=== PATIENT | female | born 1955 | race Caucasian/White ===

== ENCOUNTER 2021-05-30 06:41 | Inpatient (IN) | payer BC ==
[2021-05-30] MEDS ORDERED: Dexamethasone 10 MG/ML VIAL ONE (07:39)
[2021-05-30 07:55] LABS: #Monocytes 0.5 10x3/uL (0.0-1.1); %Basophils 0.7 % (0.0-2.0); %Lymphocytes 21.5 % (18.0-47.0); %Monocytes 11.2 % (0.0-10.0); %Neutrophils 66.2 % (40.0-75.0); Hemoglobin 15.4 g/dL (12.0-15.5); Mean Corpuscular HGB CONC 34.4 g/dL (32.0-36.0); Mean Corpuscular Hemoglobin 31.9 pg (27.0-33.0); Mean Corpuscular Volume 92.8 fl (81.6-98.3); Mean Platelet Volume 10.6 fl (7.4-10.4); Platelet Count 103 10x3/uL (150-450); Red Blood Cell (RBC) Count 4.83 10x6/uL (3.90-5.03); White Blood Cell (WBC) Count 4.5 10x3/uL (3.5-10.5)
[2021-05-30 07:58] LABS: Anion Gap 14 mmol/L (10-20); BUN (Urea Nitrogen) 8 mg/dL (9.8-20.1); Calc. Creatinine Clearance 0 mL/min (70-130); Calcium 9.2 mg/dL (7.8-10.44); Carbon Dioxide 23 mmol/L (23-31); Chloride 104 mmol/L (98-107); Glucose 98 mg/dL (80-115); Potassium 3.9 mmol/L (3.5-5.1); Sodium 137 mmol/L (136-145)
[2021-05-30 08:32] LABS: Platelet Morphology Comment Appears Decreased; RBC Morphology Normal
[2021-05-30] MEDS ORDERED: Ondansetron PF 4 MG/2 ML Vial IVP PRN (09:33)
[2021-05-30] MEDS ORDERED: Acetaminophen 325 MG TAB PO PRN (09:33)
[2021-05-30] MEDS ORDERED: Ventolin HFA Inhaler 60 PUFF INHALER INH PRN (09:48)
[2021-05-30] MEDS ORDERED: Enoxaparin Sodium 40 MG/0.4 ML SYRINGE SC SCH (12:00)
[2021-05-30 12:40] LABS: ALT (SGPT) 30 U/L (8-55); AST (SGOT) 36 U/L (5-34); Albumin 4.1 g/dL (3.4-4.8); Alkaline Phosphatase 104 U/L (40-110); Bilirubin, Direct 0.2 mg/dL (0.1-0.3); Bilirubin, Total 0.3 mg/dL (0.2-1.2); Protein, Total 7.6 g/dL (5.8-8.1)
[2021-05-30] MEDS ORDERED: REMDESIVIR 200 MG in Sodium Chloride 0.9% 250 ML 210 ML IV SCH (13:30)
[2021-05-30] MEDS ORDERED: Enoxaparin Sodium 40 MG/0.4 ML SYRINGE ONE (14:32)
[2021-05-30 20:25] VITALS: BMI 25.1
[2021-05-30] MEDS: Nicotine 21 MG PATCH TD SCH (22:51)
[2021-05-31 05:29] LABS: Anion Gap 16 mmol/L (10-20); BUN (Urea Nitrogen) 10 mg/dL (9.8-20.1); Calc. Creatinine Clearance 117 mL/min (70-130); Calcium 9.1 mg/dL (7.8-10.44); Carbon Dioxide 19 mmol/L (23-31); Chloride 106 mmol/L (98-107); Glucose 94 mg/dL (80-115); Potassium 3.9 mmol/L (3.5-5.1); Sodium 137 mmol/L (136-145)
[2021-05-31 05:32] LABS: ALT (SGPT) 25 U/L (8-55); AST (SGOT) 30 U/L (5-34); Albumin 3.5 g/dL (3.4-4.8); Alkaline Phosphatase 86 U/L (40-110); Bilirubin, Direct 0.2 mg/dL (0.1-0.3); Bilirubin, Total 0.3 mg/dL (0.2-1.2); Protein, Total 6.4 g/dL (5.8-8.1)
[2021-05-31 05:39] LABS: #Monocytes 0.6 10x3/uL (0.0-1.1); #Neutrophils 4.7 10x3/uL (1.5-8.4); %Basophils 0.3 % (0.0-2.0); %Lymphocytes 24.6 % (18.0-47.0); %Monocytes 8.4 % (0.0-10.0); %Neutrophils 66.4 % (40.0-75.0); Hemoglobin 14.5 g/dL (12.0-15.5); Mean Corpuscular HGB CONC 33.4 g/dL (32.0-36.0); Mean Corpuscular Volume 92.9 fl (81.6-98.3); Mean Platelet Volume 10.8 fl (7.4-10.4); Platelet Count 104 10x3/uL (150-450); RBC Distribution Width 13.8 % (11.5-14.5); Red Blood Cell (RBC) Count 4.67 10x6/uL (3.90-5.03)
[2021-05-31] MEDS: guaiFENesin ER 600 MG TAB PO SCH ×2 (08:52→19:50)
[2021-05-31] MEDS: Zinc Sulfate 220 MG CAP PO SCH (08:52)
[2021-05-31] MEDS: Enoxaparin Sodium 40 MG/0.4 ML SYRINGE SC SCH (08:52)
[2021-05-31] MEDS: Dexamethasone 4 mg/ml Vial SLOW IVP SCH (08:52)
[2021-05-31] MEDS: Ascorbic Acid 500 mg Chewable Tablet PO SCH (08:52)
[2021-05-31] MEDS ORDERED: Dexamethasone 6 MG in Sodium Chloride 0.9% 50 ML IVPB SCH (09:00)
[2021-05-31] MEDS: REMDESIVIR 100 MG in Sodium Chloride 0.9% 250 ML 230 ML IV SCH (12:30)
[2021-05-31] MEDS: Nicotine 21 MG PATCH TD SCH (15:05)
[2021-05-31] MEDS ORDERED: diphenhydrAMINE 50 MG CAP PO SCH (21:00)
[2021-06-01 04:34] LABS: ALT (SGPT) 24 U/L (8-55); AST (SGOT) 28 U/L (5-34); Albumin 3.5 g/dL (3.4-4.8); Alkaline Phosphatase 83 U/L (40-110); Anion Gap 16 mmol/L (10-20); BUN (Urea Nitrogen) 14 mg/dL (9.8-20.1); Bilirubin, Direct 0.1 mg/dL (0.1-0.3); Bilirubin, Total 0.3 mg/dL (0.2-1.2); Calc. Creatinine Clearance 108 mL/min (70-130); Calcium 9.1 mg/dL (7.8-10.44); Carbon Dioxide 21 mmol/L (23-31); Chloride 107 mmol/L (98-107); Globulin 2.8 g/dL (2.4-3.5); Glucose 105 mg/dL (80-115); Protein, Total 6.3 g/dL (5.8-8.1); Sodium 140 mmol/L (136-145)
[2021-06-01 04:43] LABS: Hemoglobin 15.1 g/dL (12.0-15.5); Mean Corpuscular HGB CONC 33.7 g/dL (32.0-36.0); Mean Corpuscular Hemoglobin 31.4 pg (27.0-33.0); Mean Corpuscular Volume 93.1 fl (81.6-98.3); Mean Platelet Volume 10.5 fl (7.4-10.4); Platelet Count 114 10x3/uL (150-450); RBC Distribution Width 13.7 % (11.5-14.5); Red Blood Cell (RBC) Count 4.81 10x6/uL (3.90-5.03); White Blood Cell (WBC) Count 4.7 10x3/uL (3.5-10.5)
[2021-06-01 08:06] LABS: Lymphocytes 35 % (21-51); Reactive Lymphocytes 5 % (0-10)
[2021-06-01 08:07] LABS: Band 12 % (5-11); Neutrophil 35 % (42-75)
[2021-06-01 08:09] LABS: Large Platelets SLIGHT; Monocytes 12 % (0-10); Platelet Morphology Comment Appears Adequate
[2021-06-01 08:10] LABS: MDiff Complete? YES; Manual Diff?? YES; RBC Morphology Normal
[2021-06-01] MEDS: Enoxaparin Sodium 40 MG/0.4 ML SYRINGE SC SCH (09:17)
[2021-06-01] MEDS: Dexamethasone 4 mg/ml Vial SLOW IVP SCH (09:17)
[2021-06-01] MEDS: guaiFENesin ER 600 MG TAB PO SCH ×2 (09:17→21:27)
[2021-06-01] MEDS: Ascorbic Acid 500 mg Chewable Tablet PO SCH (09:17)
[2021-06-01] MEDS: Zinc Sulfate 220 MG CAP PO SCH (09:18)
[2021-06-01] MEDS: Nicotine 21 MG PATCH TD SCH (12:40)
[2021-06-01] MEDS: REMDESIVIR 100 MG in Sodium Chloride 0.9% 250 ML 230 ML IV SCH (14:10)
[2021-06-01] MEDS ORDERED: diphenhydrAMINE 50 MG CAP PO SCH (21:30)
[2021-06-02 05:54] LABS: #Monocytes 0.6 10x3/uL (0.0-1.1); #Neutrophils 2.7 10x3/uL (1.5-8.4); %Basophils 0.4 % (0.0-2.0); %Lymphocytes 38.9 % (18.0-47.0); %Monocytes 11.2 % (0.0-10.0); Hemoglobin 15.1 g/dL (12.0-15.5); Mean Corpuscular HGB CONC 34.2 g/dL (32.0-36.0); Mean Corpuscular Hemoglobin 31.5 pg (27.0-33.0); Mean Corpuscular Volume 91.9 fl (81.6-98.3); Mean Platelet Volume 10.7 fl (7.4-10.4); Platelet Count 127 10x3/uL (150-450); RBC Distribution Width 13.5 % (11.5-14.5); White Blood Cell (WBC) Count 5.5 10x3/uL (3.5-10.5)
[2021-06-02 06:02] LABS: ALT (SGPT) 26 U/L (8-55); AST (SGOT) 28 U/L (5-34); Albumin 3.5 g/dL (3.4-4.8); Alkaline Phosphatase 75 U/L (40-110); Anion Gap 13 mmol/L (10-20); BUN (Urea Nitrogen) 12 mg/dL (9.8-20.1); Bilirubin, Direct 0.2 mg/dL (0.1-0.3); Bilirubin, Total 0.3 mg/dL (0.2-1.2); Calc. Creatinine Clearance 123 mL/min (70-130); Calcium 9.2 mg/dL (7.8-10.44); Carbon Dioxide 22 mmol/L (23-31); Chloride 107 mmol/L (98-107); Glucose 104 mg/dL (80-115); Potassium 3.9 mmol/L (3.5-5.1); Protein, Total 6.5 g/dL (5.8-8.1); Sodium 138 mmol/L (136-145)
[2021-06-02 08:44] VITALS: BP 146/68; TEMP 97.4
[2021-06-02] MEDS: Dexamethasone 4 mg/ml Vial SLOW IVP SCH (09:27)
[2021-06-02] MEDS: guaiFENesin ER 600 MG TAB PO SCH (09:28)
[2021-06-02] MEDS: Enoxaparin Sodium 40 MG/0.4 ML SYRINGE SC SCH (09:28)
[2021-06-02] MEDS: Ascorbic Acid 500 mg Chewable Tablet PO SCH (09:28)
[2021-06-02] MEDS: Zinc Sulfate 220 MG CAP PO SCH (09:28)
[2021-06-02] MEDS: REMDESIVIR 100 MG in Sodium Chloride 0.9% 250 ML 230 ML IV SCH (14:37)
[2021-06-02] MEDS: Nicotine 21 MG PATCH TD SCH (14:37)
== END 2021-06-02 17:00 | disposition home or self-care (01) | DRG 177 ==
LOC: CSHERS 06:41 → CSHERHOLD 10:04 → CSHTELE 15:46 → OBSVTOIN 05-31 14:47
PROVIDERS: ADMIT Internal Medicine; ATTEND Internal Medicine
PROC: XW033E5 Introduction of Remdesivir Anti-infective into Peripheral Vein, Percutaneous Approach, New Technology Group 5 (ICD-10-PCS; principal; 2021-05-31)
PROC: 8E0ZXY6 Isolation (ICD-10-PCS; 2021-05-31)
DX: U07.1 COVID-19 (principal); J12.82 Pneumonia due to coronavirus disease 2019; J96.01 Acute respiratory failure with hypoxia; F17.210 Nicotine dependence, cigarettes, uncomplicated; Z71.6 Tobacco abuse counseling; J44.9 Chronic obstructive pulmonary disease, unspecified; Z90.710 Acquired absence of both cervix and uterus
CPT/HCPCS: 36415; 71045; 80048; 80053; 80076; 83605; 83615; 84484; 85025; 85379; 86140; 94760; 96372; 96374; 96375; 96376; G0378; J1100; J1650; J7050

== ENCOUNTER 2022-04-03 06:51 | Observation (INO) | payer MEDICARE ==
[2022-04-03] MEDS ORDERED: Lidocaine 1% MPF 2 ML VIAL ONE (08:24)
[2022-04-03] MEDS ORDERED: Bupivacaine PF 0.5% 30 ML VIAL ONE (09:20)
[2022-04-03] MEDS ORDERED: EPINEPHrine 1 MG/ML AMP ONE (09:20)
[2022-04-03] MEDS ORDERED: CEFAZOLIN 2 GM VIAL ONE (09:56)
[2022-04-03] MEDS ORDERED: PROPOFOL 20 ML ONE (09:58)
[2022-04-03] MEDS ORDERED: Fentanyl 100 MCG/2 ML VIAL ONE ×4 (09:58→12:10)
[2022-04-03] MEDS ORDERED: Ketorolac Tromethamine 30 MG/ML VIAL ONE (10:27)
[2022-04-03] MEDS ORDERED: ePHEDrine Sulfate 50 MG/10 ML VIAL ONE (10:30)
[2022-04-03] MEDS ORDERED: PHENYLEPHRINE-NS 100 MCG/ML 10 ML SYRINGE ONE (10:32)
[2022-04-03] MEDS ORDERED: Acetaminophen 325 MG TAB PO PRN ×2 (11:54→15:04)
[2022-04-03] MEDS ORDERED: HYDROcodone/Acetaminophen 5/325 mg Tablet PO PRN (11:54)
[2022-04-03] MEDS ORDERED: HYDROmorphone 0.5 MG/0.5 ML SYRINGE ONE ×3 (12:30→13:01)
[2022-04-03] MEDS ORDERED: Acetaminophen 325 MG TAB ONE (13:33)
[2022-04-03] MEDS ORDERED: Ondansetron PF 4 MG/2 ML Vial IVP PRN (15:04)
[2022-04-03] MEDS ORDERED: Morphine 2 MG/ML VIAL SLOW IVP PRN (15:04)
[2022-04-03] MEDS ORDERED: Morphine 4 MG/ML VIAL SLOW IVP PRN (15:04)
[2022-04-03] MEDS: Sodium Chloride 0.9% 1,000 ML IV SCH (17:16)
[2022-04-03 17:34] VITALS: BMI 24.7
[2022-04-03] MEDS: Ketorolac Tromethamine 30 MG/ML VIAL IVP SCH ×2 (20:04→23:50)
[2022-04-03] MEDS: Famotidine 20 MG TAB PO SCH (20:06)
[2022-04-03] MEDS ORDERED: Enoxaparin Sodium 40 MG/0.4 ML SYRINGE SC SCH (21:00)
[2022-04-04] MEDS ORDERED: traMADol HCl 50 MG TAB PO SCH (01:15)
[2022-04-04] MEDS: Sodium Chloride 0.9% 1,000 ML IV SCH ×2 (04:35→10:17)
[2022-04-04] MEDS: Ketorolac Tromethamine 30 MG/ML VIAL IVP SCH (05:02)
[2022-04-04] MEDS ORDERED: traMADol HCl 50 MG TAB PO PRN (10:09)
[2022-04-04] MEDS: Famotidine 20 MG TAB PO SCH (10:15)
[2022-04-04 12:07] VITALS: BP 122/60; TEMP 97.1
== END 2022-04-04 11:30 | disposition home or self-care (01) ==
LOC: CSHSDC 06:51 → CSHTELE 15:35
PROVIDERS: ADMIT Surgery; ATTEND Surgery
PROC: 0WUF4JZ Supplement Abdominal Wall with Synthetic Substitute, Percutaneous Endoscopic Approach (ICD-10-PCS; principal; 2022-04-03)
PROC: 8E0W4CZ Robotic Assisted Procedure of Trunk Region, Percutaneous Endoscopic Approach (ICD-10-PCS; 2022-04-03)
DX: K43.2 Incisional hernia without obstruction or gangrene (principal); F17.200 Nicotine dependence, unspecified, uncomplicated; J44.9 Chronic obstructive pulmonary disease, unspecified; Z86.16 Personal history of COVID-19; Z90.49 Acquired absence of other specified parts of digestive tract
CPT/HCPCS: 49656; 94760 ×2; C1713; 96372; 96374; 96375; 96376; G0378; J0171; J0690; J1170; J1650; J1885; J2270; J2405; J2704; J3010; J7050; S0020

== ENCOUNTER 2024-08-08 11:04 | Outpatient (CLI) | payer OTHER ==
[2024-08-08 12:45] LABS: Hematocrit 40.6 % (34.9-44.5); Hemoglobin 13.2 g/dL (12.0-15.5); Mean Corpuscular HGB CONC 32.5 g/dL (32.0-36.0); Mean Corpuscular Hemoglobin 30.1 pg (27.0-33.0); Mean Corpuscular Volume 92.7 fL (81.6-98.3); Mean Platelet Volume 10.1 fL (7.4-10.4); Platelet Count 256 10x3/uL (150-450); RBC Distribution Width 13.5 % (11.5-14.5); Red Blood Cell (RBC) Count 4.38 10x6/uL (3.90-5.03); White Blood Cell (WBC) Count 8.4 10x3/uL (3.5-10.5)
[2024-08-08 13:28] LABS: Anion Gap 14 mmol/L (10-20); BUN (Urea Nitrogen) 11 mg/dL (9.8-20.1); Calc. Creatinine Clearance 0 mL/min (70-130); Calcium 9.5 mg/dL (7.8-10.44); Carbon Dioxide 25 mmol/L (23-31); Chloride 106 mmol/L (98-107); Estimated GFR 84; Glucose 86 mg/dL (80-115); Potassium 4.4 mmol/L (3.5-5.1); Sodium 141 mmol/L (136-145)
== END 2024-08-08 11:05 | disposition home or self-care (01) ==
LOC: CSHLAB 11:04
PROVIDERS: ATTEND Surgery
DX: Z01.818 Encounter for other preprocedural examination (principal); C34.90 Malignant neoplasm of unspecified part of unspecified bronchus or lung
CPT/HCPCS: 80048; 85027; 93005; 93010

== ENCOUNTER 2024-08-09 05:39 | Day surgery (SDC) | payer MEDICARE, OTHER ==
[2024-08-08 11:37] VITALS: BMI 26.5
[2024-08-09] MEDS ORDERED: CEFAZOLIN 2 GM VIAL ONE (06:07)
[2024-08-09] MEDS ORDERED: Bupivacaine HCl 0.5%/Epinephrine 1:200,000/PF 30 ml Vial ONE (06:07)
[2024-08-09] MEDS ORDERED: PROPOFOL 20 ML ONE (06:33)
[2024-08-09] MEDS ORDERED: Lidocaine 2% PF 5 ML VIAL ONE (06:33)
[2024-08-09] MEDS ORDERED: fentaNYL 50 mcg/mL 1 mL Vial ONE (07:19)
[2024-08-09] MEDS ORDERED: Ketorolac Tromethamine 30 MG (1 mL) VIAL ONE (07:32)
== END 2024-08-09 08:55 | disposition home or self-care (01) ==
LOC: CSHSDC 05:39
PROVIDERS: ATTEND Surgery
PROC: 05HN33Z Insertion of Infusion Device into Left Internal Jugular Vein, Percutaneous Approach (ICD-10-PCS; principal; 2024-08-09)
DX: C34.91 Malignant neoplasm of unspecified part of right bronchus or lung (principal); I10 Essential (primary) hypertension; J44.9 Chronic obstructive pulmonary disease, unspecified; K57.92 Diverticulitis of intestine, part unspecified, without perforation or abscess without bleeding; F17.200 Nicotine dependence, unspecified, uncomplicated; Z86.73 Personal history of transient ischemic attack (TIA), and cerebral infarction without residual deficits; Z98.890 Other specified postprocedural states; Z79.51 Long term (current) use of inhaled steroids; Z79.899 Other long term (current) drug therapy
CPT/HCPCS: 36561; 71045; C1788; J1642; J1885; J2704; J3010